=== PATIENT | male | born 1970 | race Caucasian/White ===

== ENCOUNTER 2017-10-28 22:42 | Emergency (ER) | payer OTHER ==
[2017-10-28] MEDS ORDERED: TDAP ADULT 0.5 ML INJ (BOOSTRIX) IM ONE (22:51)
--- NOTE | 2017-10-28 23:14 | EDPHY ---
H & P Stated Complaint: FELL FROM TOP BUNK IN [facility] APROX 4.5-5 FT HIGH Source: Patient, EMS Exam Limitations: No limitations - Personal History Current Tetanus/Diphtheria Vaccine: Unsure Current Tetanus Diphtheria and Acellular Pertussis (TDAP): Unsure - Medical/Surgical History Hx Asthma: Yes Hx Chronic Respiratory Disease: No Hx Diabetes: No Hx Cardiac Disease: No Hx Renal Disease: No Hx Cirrhosis: No Hx Alcoholism: No Hx HIV/AIDS: No Hx Splenectomy or Spleen Trauma: No Other PMH: HERNIA REPAIR,FACIAL SURGERY, - Social History Smoking Status: Never smoked Time Seen by Provider: 10/28/17 22:51 HPI/ROS: HPI: The patient presents with fall with positive LOC, brought in by ambulance as limited trauma activation. The patient is currently incarcerated and had a fall off of his bunk bed which is approximately 5 ft tall. He landed on the cement floor. He was unconscious and slow to respond initially. He had perseveration and repetitive questioning. He is brought in by paramedics. Blood glucose was normal. He was noted to have a laceration of his right scalp. He is not complaining of any other injuries. He denies any headache, nausea, vomiting, vision change. REVIEW OF SYSTEMS Constitutional: No fever, no chills. Eyes: No discharge. ENT: No sore throat. Cardiovascular: No chest pain, no palpitations. Respiratory: No cough, no shortness of breath. Gastrointestinal: No abdominal pain, no vomiting. Genitourinary: No hematuria. Musculoskeletal: No back pain. Skin: No rashes. Neurological: No headache. PMHx: Asthma, insomnia takes trazodone for sleep TRAUMA PHYSICAL General Appearance: Alert, no distress Head: Right scalp with hematoma and 2 cm gaping laceration Eyes: Pupils equal, round, reactive ENT, Mouth: No hemotypanium, no oral trauma Neck: Non- tender, trachea midline Respiratory: No chest wall tenderness, no subcutaneous air, lungs clear bilaterallty Cardiovascular: Regular rate and rhythm Abdomen: Abdomen is soft and non-tender, pelvis stable Skin: No lacerations, No abrasion Back: No midline T/L/S pain Extremities: Non-tender, full range of motion Neurological: A&Ox3, GCS=15,normal motor function with 5/5 strength in all 4 extremities, normal sensory exam (Riguzzi,Sofi) Constitutional: Initial Vital Signs Temperature (C) 36.8 C 10/28/17 22:45 Heart Rate 77 10/28/17 22:45 Respiratory Rate 16 10/28/17 22:45 Blood Pressure 128/76 H 10/28/17 22:45 O2 Sat (%) 100 10/28/17 22:45 O2 Delivery Mode Room Air Allergies/Adverse Reactions: No Known Allergies Allergy (Unverified 10/28/17 22:54) Home Medications: Medication Instructions Recorded Albuterol Hfa Anes Only [Proair 2 puffs IH QID 10/28/17 Hfa Icu (*)] Melatonin [Melatonin 5 mg] 5 mg PO 10/28/17 Polyethylene Glycol 3350 [Miralax 17 gm PO DAILY 10/28/17 17 gm (*)] traZODone [traZODONE 50MG (*)] 50 mg PO HS 10/28/17 Medical Decision Making - Diagnostics Imaging: Discussed imaging studies w/ call center rn Radiologist - Diagnostics Imaging Results: Imaging Impressions Cervical Spine CT 10/28/17 22:51 Impression: 1. No acute fracture or soft tissue swelling. 2. If the patient has persistent pain or neurologic deficits, consider cervical spine MRI. Findings discussed with Emergency Department physician, Sofi Barraza MD at 10/28/2017 23:30. Head CT 10/28/17 22:51 Impression: Negative. No acute fracture or evidence of acute intracranial injury. Findings discussed with Emergency Department physician, Sofi Barraza MD at 10/28/2017 23:29. Shoulder X-Ray 10/28/17 23:31 Impression: Negative. No acute fracture or AC separation. Imaging Impressions Cervical Spine CT 10/28/17 22:51 Impression: 1. No acute fracture or soft tissue swelling. 2. If the patient has persistent pain or neurologic deficits, consider cervical spine MRI. Findings discussed with Emergency Department physician, Sofi Barraza MD at 10/28/2017 23:30. Head CT 10/28/17 22:51 Impression: Negative. No acute fracture or evidence of acute intracranial injury. Findings discussed with Emergency Department physician, Sofi Barraza MD at 10/28/2017 23:29. Shoulder X-Ray 10/28/17 23:31 Impression: Negative. No acute fracture or AC separation. Elbow x-ray three views right shows no fracture, no dislocation no effusion, interpreted by me, radiology interpretation is pending. (Sofi Barraza) Procedures: Procedure: Laceration repair. I explained the indications, risks and benefits for both laceration repair and anesthetic administration. Verbal consent was obtained from the patient. The laceration on the right temporal region was anesthetized using 0.5% bupivicaine with epinephrine. After anesthetic administered the patient was observed for a period of time and had no apparent adverse effects. The wound was cleaned, prepped, draped in normal sterile fashion and explored to its base. No foreign body seen, no foreign bodies palpated. There were no deep structures involved. The wound was repaired with 3 aj. The wound repair was simple. The procedure was performed by myself. Patient has been informed that scarring will occur, although efforts have been made to minimize this. (Onesimo Rodas) Differential Diagnosis: [age] year old year old male [facility] as limited trauma activation after fall which occurred just prior to arrival from 5 ft bunk bed with positive LOC and right-sided scalp laceration. Initially with repetitive questioning. Here he is alert though is confused. He is not able to answer all of my questions. He does have a scalp laceration with hematoma. Differential diagnosis includes intracranial hemorrhage, concussion, scalp laceration, cervical spinal fracture. In the emergency department, his tetanus vaccine was updated. He had repair of his scalp laceration. CT scans revealed no acute intracranial hemorrhage or skull fracture. CT of cervical spine was unremarkable. On reassessment, the patient was complaining of right shoulder and elbow pain. He was given a dose of Toradol. X-rays were performed showing no acute injuries. I suspect he is having muscular pain. He did have some ongoing repetitive questioning, however this is improved from his initial evaluation. I suspect he has suffered from a concussion due to his fall. I discussed his case with the nurse at the [facility]. I explained that we have diagnosed him with a concussion. We reviewed the patient's imaging. They except the patient back to the [facility]. The patient will be discharged in police custody. (Sofi Barraza) - Data Points Medications Given: Discontinued Medications Diphtheria/Tetanus/Acell Pertussis (Boostrix) 0.5 ml IM .ONCE ONE Stop: 06/18/18 22:52 Last Admin: 10/29/17 00:02 Dose: 0.5 ml Sodium Chloride (Ns) 1,000 mls @ 0 mls/hr IV EDNOW ONE; Wide Open PRN Reason: Protocol Stop: 10/28/17 23:32 Last Admin: 10/28/17 23:58 Dose: 1,000 mls Ketorolac Tromethamine (Toradol) 15 mg IVP EDNOW ONE Stop: 10/28/17 23:32 Last Admin: 10/29/17 00:01 Dose: 15 mg Ondansetron HCl (Zofran) 4 mg IVP EDNOW ONE Stop: 10/28/17 23:32 Last Admin: 10/29/17 00:01 Dose: 4 mg Departure - Departure Disposition: Law Enforcement/Court/Halfway Clinical Impression: Fall involving bunk bed as cause of accidental injury Scalp laceration Qualifiers: Encounter type: initial encounter Qualified Code(s): S01.01XA - Laceration without foreign body of scalp, initial encounter Concussion Qualifiers: Encounter type: initial encounter Loss of consciousness presence/duration: with LOC of 30 min or less Qualified Code(s): S06.0X1A - Concussion with loss of consciousness of 30 minutes or less, initial encounter Condition: Good Instructions: Concussion (ED), Staple Care (ED) Additional Instructions: It appears that you have a concussion. We recommend plenty of rest for this, avoiding any strenuous physical activity. If you have a headache you can take ibuprofen 400 mg every 6 hr for pain. If you have symptoms that last for more than 1-2 days, we recommend that you follow up with a internal medicine doctor. The aj that are in place in your head should stay there for 10 days and should be removed on November 08. Referrals: Helen Real MD [Medical Doctor] - As per Instructions
[2017-10-28] MEDS ORDERED: NS 1,000 ML IV ONE (23:31)
[2017-10-28] MEDS ORDERED: KETOROLAC 15 MG/1 ML SDV IVP ONE (23:31)
[2017-10-28] MEDS ORDERED: ONDANSETRON 4 MG/2 ML VIAL IVP ONE (23:31)
[2017-10-29 01:37] VITALS: BP 120/67
== END 2017-10-29 01:36 ==
LOC: EDUNIT#
PROC: 0HQ0XZZ Repair Scalp Skin, External Approach (ICD-10-PCS; principal; 2017-10-28)
DX: S01.01XA Laceration without foreign body of scalp, initial encounter (principal); S06.0X1A Concussion with loss of consciousness of 30 minutes or less, initial encounter; J45.909 Unspecified asthma, uncomplicated; E86.9 Volume depletion, unspecified; Z23 Encounter for immunization; W06.XXXA Fall from bed, initial encounter
CPT/HCPCS: 96374; J1885; J2405; L0174